=== PATIENT | female | born 1940 | race Caucasian/White ===

== ENCOUNTER → 2019-05-24 | Outpatient (CLI) | payer OTHER, BC, SELFPAY ==
[~2019-05-24] VITALS: Ht 160 cm; Wt 88.5 kg
[~2019-05-24] MED LIST: ACETAMINOPHEN325 M1 PO; ALDACTONE25 MG PO; ALPRAZOLAM 0.0.25 M1 PO; ASPIR-TRIN325 MG PO; ASPIRIN EC325 M1 PO; ASPIRIN EC81 M1 PO; BENADRYL ALLERG25 MG PO; BENADRYL25 MG PO; CARVEDILOL12.5 MG PO; CENTRUM SILVER1 EAC4 PO; COLACE100 MG PO; COMBIVENT INH; DUONEB 2.5-0.5 M3 ML IH; EFFIENT10 MG PO; FISH OIL 1,0001 EAC5 PO; FISH OIL 1,001000 M2 PO; FLEXERIL PO; K-DUR10 ME1 PO; LASIX 20 MG TAB20 MG PO; LASIX 40 MG TAB40 M1 PO; NITROGLYCERIN0.4 MG SL; PEPCID AC20 M1 PO; PLAVIX 75 MG TA75 MG PO; POTASSIUM20 PO; PREDNISONE 20 M20 M1 PO; PRINIVIL20 MG PO; VITAMIN D-32000 UNIT PO; ZANTAC 150MG T150 M1 PO; ZOCOR 20 MG TAB20 M1 PO; ZOCOR20 MG PO; ZYRTEC 10 MG TA10 MG PO
[2019-05-24 13:41] VITALS: BP 159/89
--- NOTE | 2019-05-24 17:04 | NUR ---
RECEIVED FROM IR IN CV HOLDING POST IVUS. PT AWAKE ALERT, IN NAD, DENIES PAIN. DRESSING RT IJ CLEAN DRY INTACT. VSS. FAMILY AT BEDSIDE. PT TALKING AND ALERT. DR CHACKO SPEAKS TO FAMILY
== END | disposition home or self-care (01) ==
LOC: CATH 12:14
DX: I87.2 Venous insufficiency (chronic) (peripheral) (principal); I87.1 Compression of vein; I87.303 Chronic venous hypertension (idiopathic) without complications of bilateral lower extremity; I10 Essential (primary) hypertension; E78.5 Hyperlipidemia, unspecified; E78.00 Pure hypercholesterolemia, unspecified; I25.10 Atherosclerotic heart disease of native coronary artery without angina pectoris; I48.91 Unspecified atrial fibrillation; I25.2 Old myocardial infarction; Z79.01 Long term (current) use of anticoagulants; Z87.19 Personal history of other diseases of the digestive system; Z79.899 Other long term (current) drug therapy; Z90.49 Acquired absence of other specified parts of digestive tract; Z90.710 Acquired absence of both cervix and uterus; Z98.890 Other specified postprocedural states; Z88.2 Allergy status to sulfonamides; Z88.8 Allergy status to other drugs, medicaments and biological substances; Z79.82 Long term (current) use of aspirin

== ENCOUNTER → 2019-05-31 | Outpatient (CLI) | payer OTHER, BC ==
[2019-05-31 13:23] VITALS: BP 126/78
== END | disposition home or self-care (01) ==
LOC: CATH 11:06
DX: I87.323 Chronic venous hypertension (idiopathic) with inflammation of bilateral lower extremity (principal); I87.2 Venous insufficiency (chronic) (peripheral); R22.43 Localized swelling, mass and lump, lower limb, bilateral; Z88.2 Allergy status to sulfonamides; Z88.8 Allergy status to other drugs, medicaments and biological substances; Z79.82 Long term (current) use of aspirin; Z79.899 Other long term (current) drug therapy; Z90.49 Acquired absence of other specified parts of digestive tract; Z90.710 Acquired absence of both cervix and uterus; Z98.890 Other specified postprocedural states

== ENCOUNTER → 2021-11-05 | Outpatient (CLI) | payer OTHER, BC | LOC: SJCVCIMAG 11:44 | PROVIDERS: ATTEND Internal Medicine | DX: R94.31 Abnormal electrocardiogram [ECG] [EKG] (principal); I11.9 Hypertensive heart disease without heart failure; I08.8 Other rheumatic multiple valve diseases; I25.10 Atherosclerotic heart disease of native coronary artery without angina pectoris; I48.0 Paroxysmal atrial fibrillation; E78.5 Hyperlipidemia, unspecified; I65.23 Occlusion and stenosis of bilateral carotid arteries; G47.33 Obstructive sleep apnea (adult) (pediatric); E78.00 Pure hypercholesterolemia, unspecified; I10 Essential (primary) hypertension; G47.30 Sleep apnea, unspecified; Z87.891 Personal history of nicotine dependence; Z88.2 Allergy status to sulfonamides; Z88.0 Allergy status to penicillin; Z88.8 Allergy status to other drugs, medicaments and biological substances; Z91.013 Allergy to seafood; Z79.82 Long term (current) use of aspirin; Z79.899 Other long term (current) drug therapy; Z82.49 Family history of ischemic heart disease and other diseases of the circulatory system ==